=== PATIENT | female | born 1985 | race Caucasian/White ===

== ENCOUNTER 2016-11-06 12:27 | Emergency (ER) | payer OTHER ==
[~2016-11-06] VITALS: Ht 142.2 cm; Wt 64.9 kg
[2016-11-06 13:04] VITALS: BP 118/77
--- NOTE | 2016-11-06 15:10 | NUR ---
PT TO BED 3 AT THIS TIME.
--- NOTE | 2016-11-06 15:16 | NUR ---
PATIENT PRESENTS TO ED WITH C/O HEADCHE/ DIZZINESS/NAUSEA 8/10 X 7DAYS . PT STATES SHE HAS ALSO RIGHT AXILLA PAIN 8/10 X 15 DAYS.SKIN IS PINK/WARM/DRY; AAOX4 WITH EVEN AND STEADY GAIT; LUNGS CLEAR BL; HR EVEN AND REGULAR; PT DENIES ANY FEVER, CP, SOB, OR COUGH AT THIS TIME; PATIENT POSITIONED FOR COMFORT; HOB ELEVATED; BEDRAILS UP X2; BED DOWN. ER MD MADE AWARE OF PT STATUS.
--- NOTE | 2016-11-06 16:11 | NUR ---
DR STARK AT BEDSIDE
[2016-11-06] MEDS ORDERED: KETOROLAC 60 MG/2 ML VIAL IM ONE (16:15)
[2016-11-06] MEDS ORDERED: MECLIZINE 25 MG TAB PO ONE (16:15)
--- NOTE | 2016-11-06 16:32 | NUR ---
PT AAOX4. NO ACUTE DISTRESS NOTED AT THIS TIME. NEEDS ATTENDED.SAFETY PRECAUTION INSTITUTED. WILL CONTINUE TO MONITOR PT.
--- NOTE | 2016-11-06 16:53 | NUR ---
Patient discharged with v/s stable. Written and verbal after care instructions given and explained. Patient alert, oriented and verbalized understanding of instructions. Ambulatory with steady gait. All questions addressed prior to discharge. ID band removed. Patient advised to follow up with PMD. Rx of norco,meclizine hcl,motrin given. Patient educated on indication of medication including possible reaction and side effects. Opportunity to ask questions provided and answered.
[2016-11-06 16:55] VITALS: BP 112/66
== END 2016-11-06 16:53 | disposition home or self-care (01) ==
LOC: MED 12:27
PROC: 3E033GC Introduction of Other Therapeutic Substance into Peripheral Vein, Percutaneous Approach (ICD-10-PCS; principal; 2016-11-06)
DX: R51 Headache (principal); R42 Dizziness and giddiness
CPT/HCPCS: 81002; 81025; 96372; 99283; J1885; J8597

== ENCOUNTER 2017-07-17 15:52 | Emergency (ER) | payer OTHER ==
[~2017-07-17] VITALS: Ht 149.9 cm; Wt 63.5 kg
[2017-07-17 16:03] VITALS: BP 127/75
--- NOTE | 2017-07-17 16:51 | NUR ---
PATIENT AMBULATED TO RM. #9
--- NOTE | 2017-07-17 16:56 | NUR ---
PRESENTS TO ER W/C/O RIGHT BREAST PAIN AND LUMP X1 WEEK. PT STATES SHE WAS SEEN AT [facility] ON SUNDAY AND WAS GIVEN PRESCRIPTION FOR PAIN MEDICATION, WHICH SHE HAS SINCE RUN OUT OF, BUT THE PAIN CONTINUES. DENIES N/V/D; SKIN IS PINK/WARM/DRY; AAOX4 WITH EVEN AND STEADY GAIT; LUNGS CLEAR BL; HR EVEN AND REGULAR; PT DENIES ANY FEVER, CP, SOB, OR COUGH AT THIS TIME; PATIENT STATES PAIN OF 8/10 AT THIS TIME; VSS; PATIENT POSITIONED FOR COMFORT; HOB ELEVATED; BEDRAILS UP X2; BED DOWN. ER MD MADE AWARE OF PT STATUS.
--- NOTE | 2017-07-17 16:56 | NUR ---
PT BEING EVALUATED BY DR RUIZ WITH GRAZYNA FRANCOIS AT BEDSIDE
[2017-07-17] MEDS ORDERED: KETOROLAC 30 MG/ML VIAL IVP ONE (17:00)
[2017-07-17] MEDS ORDERED: AMPICILLIN/SULBACTAM 3 GM in NACL 0.9% 100 ML IV ONE (17:00)
[2017-07-17] MEDS ORDERED: AMPICILLIN/SULBACTAM 3 GM VIAL ONE (17:14)
[2017-07-17 18:35] VITALS: BP 131/88
--- NOTE | 2017-07-17 18:35 | NUR ---
Patient discharged with v/s stable. Written and verbal after care instructions given and explained. Patient alert, oriented and verbalized understanding of instructions. Ambulatory with steady gait. All questions addressed prior to discharge. ID band removed. Patient advised to follow up with PMD. Rx of AUGMENTIN, TRAMADOL given. Patient educated on indication of medication including possible reaction and side effects. Opportunity to ask questions provided and answered.
== END 2017-07-17 18:35 | disposition home or self-care (01) ==
LOC: MED 15:52
DX: N61.0 Mastitis without abscess (principal)
CPT/HCPCS: 96365; 96375; 99284; J0295; J1885

== ENCOUNTER 2019-04-14 21:44 | Emergency (ER) | payer MEDICAID, OTHER ==
[~2019-04-14] VITALS: Ht 149.9 cm; Wt 59.9 kg
[2019-04-14 21:55] VITALS: BP 126/83
--- NOTE | 2019-04-14 22:02 | NUR ---
PATIENT CAME IN TO ED WITH C/O PRODUCTIVE COUGH, X2-3 WEEKS. REPORTS HEADACHE, PLEURITIC CHEST PAIN, AND NAUSEA. PATIENT STATES SHE HAS TAKEN OTC THERAFLU WITHOUT RELIEF. PT DENIES ANY FEVER, OR SOB; PATIENT STATES PAIN OF 7/10 AT THIS TIME; VSS; PATIENT POSITIONED FOR COMFORT; HOB ELEVATED; BEDRAILS UP X2; BED DOWN. ER MD MADE AWARE OF PT STATUS.
--- NOTE | 2019-04-14 22:02 | NUR ---
PT AMBULATED TO BED WITH DAUGHTER
[2019-04-14 22:27] VITALS: BP 121/76
--- NOTE | 2019-04-14 22:27 | NUR ---
Patient discharged with v/s stable. Written and verbal after care instructions given and explained. Patient alert, oriented and verbalized understanding of instructions. Ambulatory with steady gait. All questions addressed prior to discharge. ID band removed. Patient advised to follow up with PMD. Rx of PREDNISONE 50MG, PROMETHAZINE HYDROCHLORIDE/DEXTROMETHORPHAN HYDROBROMIDE 6.25MG-15MG/5ML SYRUP given. Patient educated on indication of medication including possible reaction and side effects. Opportunity to ask questions provided and answered.
== END 2019-04-14 22:27 | disposition home or self-care (01) ==
LOC: MED 21:44
DX: R05 Cough (principal); R51 Headache; R50.9 Fever, unspecified; Z88.1 Allergy status to other antibiotic agents
CPT/HCPCS: 99283

== ENCOUNTER 2021-10-10 09:42 | Emergency (ER) | payer MEDICAID ==
[~2021-10-10] VITALS: Ht 147.3 cm; Wt 68.2 kg
[2021-10-10 09:52] VITALS: BP 133/87
--- NOTE | 2021-10-10 11:02 | NUR ---
[place] in [facility] - 10/10/21 at 1137 by APOLLO Patiet ambulated to bed 11 with steady/even gait.
--- NOTE | 2021-10-10 11:02 | NUR ---
Patient ambulated to bed 11 with steady/even gait.
--- NOTE | 2021-10-10 11:12 | NUR ---
36 YR OLD FEMALE C/O VAGINAL BLEEDING 1 DAY AGO. COMPLAINS OF LEFT SUPRAPUBIC PAIN 6/10 2 DAYS AGO, TENDER TO PALPATION, DENIES PAIN RIGHT NOW. DENIES DYSURIA, VAGINAL DISCHARGE. PATIENT STATES POSITIVE TEST ON Sep.02. DENIES CARE. DENIES N/V, DIZZINESS, HEADACHE. BED LOCKED, SIDE RAILS X1, A/O X4. MEDHX: GESTATIONAL DIABETES ALLERGIES: CLYNDAMICIN, VANCOMYCIN.
--- NOTE | 2021-10-10 11:30 | NUR ---
Dr. Braun is evaluating pt at bedside
--- NOTE | 2021-10-10 11:55 | NUR ---
US tech at bedside
--- NOTE | 2021-10-10 12:00 | NUR ---
URINE SPECIMEN COLLECTED AND DROPPED OFF AT LAB.
[2021-10-10 13:08] LABS: BASOPHILS # (AUTO) 0.1 K/uL (0.00-0.22); BASOPHILS % (AUTO) 0.5 % (0.0-2.0); EOSINOPHILS # (AUTO) 0.1 K/uL (0-0.4); EOSINOPHILS % (AUTO) 0.5 % (0.0-4.0); HEMATOCRIT 39.7 % (36-48); HEMOGLOBIN 13.2 g/dL (12.0-16.0); LYMPHOCYTES # (AUTO) 2.9 K/uL (2.5-16.5); LYMPHOCYTES % (AUTO) 29.6 % (20.5-51.1); MEAN CORPUSCULAR HEMOGLOBIN 28 pg (27-31); MEAN CORPUSCULAR HGB CONC 33 g/dL (33-37); MEAN CORPUSCULAR VOLUME 83.8 fL (80-94); MONOCYTES # (AUTO) 0.4 K/uL (0.8-1.0); MONOCYTES % (AUTO) 3.7 % (1.7-9.3); NEUTROPHILS # (AUTO) 6.5 K/uL (1.8-7.7); NEUTROPHILS % (AUTO) 65.7 % (42.2-75.2); PLATELET COUNT (AUTO) 405 K/uL (140-450); RED BLOOD CELL COUNT(AUTO) 4.74 MIL/uL (4.20-5.40); RED CELL DISTRIBUTION WIDTH 13.9 % (11.6-13.7); WHITE BLOOD COUNT (AUTO) 9.9 K/uL (4.8-10.8)
[2021-10-10 13:31] LABS: ALBUMIN 3.7 g/dL (3.4-5.0); ANION GAP 13.6 (8-16); CARBON DIOXIDE 25.2 mmol/L (21-32); CREATININE 0.6 mg/dL (0.6-1.3); POTASSIUM 3.8 mmol/L (3.5-5.1); TOTAL BILIRUBIN 0.3 mg/dL (0.0-1.0)
[2021-10-10 17:26] LABS: APPEARANCE,URINE CLOUDY (CLEAR); BILIRUBIN,URINE NEGATIVE (NEGATIVE); BLOOD, URINE 3+ (NEGATIVE); COLOR,URINE YELLOW (YELLOW); LEUKOCYTE ESTERASE ,URINE 3+ (NEGATIVE); NITRITE, URINE NEGATIVE (NEGATIVE); UGLUCOSE NEGATIVE (NEGATIVE)
--- NOTE | 2021-10-10 17:39 | NUR ---
PATIENT IS SITTING IN CHAIR. NEEDS MET. PROVIDED PATIENT WITH GELATIN. WILL CONTINUE TO MONITOR.
[2021-10-10 17:44] LABS: RBC,URINE TOO NUMEROUS TO COUN /HPF (0-5); WBC,URINE TOO MANY TO COUNT /HPF (0-5)
[2021-10-10] MEDS ORDERED: CEPH-588 PO (17:53)
[2021-10-10] MEDS ORDERED: cephALEXin 500 MG CAP PO ONE (17:55)
[2021-10-10 18:37] VITALS: BP 121/70
== END 2021-10-10 18:39 | disposition home or self-care (01) ==
LOC: MED 09:42
DX: O20.0 Threatened abortion (principal); O23.40 Unspecified infection of urinary tract in pregnancy, unspecified trimester; E11.9 Type 2 diabetes mellitus without complications; Z79.899 Other long term (current) drug therapy; Z88.8 Allergy status to other drugs, medicaments and biological substances
CPT/HCPCS: 36415; 76801; 80053; 81001; 84702; 85025; 86886; 86900; 86901; 87086; 99285; Q0092

== ENCOUNTER 2021-10-12 22:38 | Emergency (ER) | payer MEDICAID ==
[~2021-10-12] VITALS: Ht 149.9 cm; Wt 68.5 kg
[~2021-10-12 22:38] MED LIST: CEPH-588 PO
[2021-10-12 22:44] VITALS: BP 136/85
--- NOTE | 2021-10-12 22:51 | NUR ---
PT IS IN LOBBY.
--- NOTE | 2021-10-12 23:00 | NUR ---
36 YO F BIB SELF WITH C/C OF 6/10 SHARP LLQ PAIN X TODAY. PT STATES SHE WAS SEEN HERE ON SUNDAY FOR VAGINAL BLEEDING. PT STATES SHE HAD A MISCARRIAGE. PT WAS INSTRUCTED TO SEE OBGYN BY TODAY IF NOT TO COME BACK TO ER. PT DENIES BLEEDING NOW. DENIES HX, RX AND ALLERGIES
[2021-10-12] MEDS ORDERED: ACETAMINOPHEN EXTRA STRENGTH 500 MG TAB PO ONE (23:20)
[2021-10-13 01:09] LABS: BASOPHILS % (AUTO) 0.4 % (0.0-2.0); EOSINOPHILS # (AUTO) 0.1 K/uL (0-0.4); EOSINOPHILS % (AUTO) 0.9 % (0.0-4.0); HEMATOCRIT 38.1 % (36-48); HEMOGLOBIN 12.6 g/dL (12.0-16.0); LYMPHOCYTES % (AUTO) 35.3 % (20.5-51.1); MEAN CORPUSCULAR HEMOGLOBIN 28 pg (27-31); MEAN CORPUSCULAR HGB CONC 33 g/dL (33-37); MEAN CORPUSCULAR VOLUME 83.6 fL (80-94); MONOCYTES # (AUTO) 0.6 K/uL (0.8-1.0); MONOCYTES % (AUTO) 4.3 % (1.7-9.3); NEUTROPHILS # (AUTO) 8.4 K/uL (1.8-7.7); NEUTROPHILS % (AUTO) 59.1 % (42.2-75.2); PLATELET COUNT (AUTO) 387 K/uL (140-450); RED BLOOD CELL COUNT(AUTO) 4.55 MIL/uL (4.20-5.40); RED CELL DISTRIBUTION WIDTH 13.6 % (11.6-13.7); WHITE BLOOD COUNT (AUTO) 14.2 K/uL (4.8-10.8)
[2021-10-13] MEDS ORDERED: CRUSHER, PILL MC ONE (01:15)
[2021-10-13 01:18] LABS: ALBUMIN 3.7 g/dL (3.4-5.0); ANION GAP 13.1 (8-16); CARBON DIOXIDE 23.4 mmol/L (21-32); CREATININE 0.7 mg/dL (0.6-1.3); POTASSIUM 3.5 mmol/L (3.5-5.1); TOTAL BILIRUBIN 0.2 mg/dL (0.0-1.0)
[2021-10-13] MEDS ORDERED: cefTRIAXone 1,000 MG in LIDOCAINE MPF 1% 2.1 ML IM ONE (03:05)
[2021-10-13] MEDS ORDERED: cefTRIAXone 1,000 MG VIAL ONE (03:11)
[2021-10-13] MEDS ORDERED: LIDOCAINE MPF 1% 5 ML ONE (03:13)
[2021-10-13 03:35] VITALS: BP 132/78
--- NOTE | 2021-10-13 03:35 | NUR ---
Patient discharged with v/s stable. Written and verbal after care instructions given and explained. Patient verbalized understanding. Ambulatory with steady gait. All questions addressed prior to discharge. Advised to follow up with PMD.
== END 2021-10-13 03:35 | disposition home or self-care (01) ==
LOC: MED 22:38
DX: O23.41 Unspecified infection of urinary tract in pregnancy, first trimester (principal); E11.9 Type 2 diabetes mellitus without complications; Z88.1 Allergy status to other antibiotic agents; Z3A.08 8 weeks gestation of pregnancy
CPT/HCPCS: 36415; 76817; 80053; 84703; 85025; 96372; 99284; J0696; J2001; Q0092

== ENCOUNTER 2023-11-08 16:41 | Emergency (ER) | payer MEDICAID, OTHER ==
[~2023-11-08] VITALS: Ht 147.3 cm; Wt 68.0 kg
[2023-11-08 17:25] VITALS: BP 118/71; PULSE 93; RESP 16; TEMP 98.3; O2SAT 98
== END 2023-11-08 18:14 | disposition home or self-care (01) ==
LOC: MED 16:41
DX: S01.81XA Laceration without foreign body of other part of head, initial encounter (principal); F41.9 Anxiety disorder, unspecified; E11.9 Type 2 diabetes mellitus without complications; Z79.2 Long term (current) use of antibiotics; Z88.1 Allergy status to other antibiotic agents; W20.8XXA Other cause of strike by thrown, projected or falling object, initial encounter; Y93.89 Activity, other specified; Y92.89 Other specified places as the place of occurrence of the external cause; Y99.8 Other external cause status
CPT/HCPCS: 90471; 90715; 99283

== ENCOUNTER 2023-11-10 18:31 | Emergency (ER) | payer OTHER ==
[~2023-11-10] VITALS: Ht 144.8 cm; Wt 68.0 kg
[2023-11-10 18:41] VITALS: BP 113/70; PULSE 84; RESP 16; TEMP 98; O2SAT 99
[2023-11-10 19:03] VITALS: BP 113/70; PULSE 84; RESP 16; TEMP 98; O2SAT 99
== END 2023-11-10 19:05 | disposition home or self-care (01) ==
LOC: MED 18:31
DX: S01.81XD Laceration without foreign body of other part of head, subsequent encounter (principal); Z48.00 Encounter for change or removal of nonsurgical wound dressing; X58.XXXD Exposure to other specified factors, subsequent encounter
CPT/HCPCS: 99282